=== PATIENT | female | born 1965 | race Caucasian/White ===

== ENCOUNTER → 2017-07-02 | Outpatient (CLI) | payer OTHER ==
[~2017-07-02] MED LIST: BIAXIN500 MG PO; CALCIUM 500500 M2 PO; HORMONE PATCH T; NORFLEX100 MG PO; OMEPRAZOLE40 MG PO; PERCOCET 325 MG1 TA7 PO; PRILOSEC20 MG PO; RANITIDINE HCL300 M2 PO; TRAMADOL50 MG PO; TYLENOL650 M1 PO; VICODIN ES 7501 TAB PO; ZEGERID 20 MG-11 CAP PO
== END | disposition home or self-care (01) ==
LOC: MAMMO 14:15
DX: Z12.31 Encounter for screening mammogram for malignant neoplasm of breast (principal)

== ENCOUNTER 2018-03-04 13:24 | Inpatient (IN) | payer OTHER ==
[~2018-03-04] VITALS: Ht 165.1 cm; Wt 67.7 kg
--- NOTE | ~2018-03-04 | EKG ---
[place], [place] ELECTROCARDIOGRAM REPORT NAME: ANSHU GARRISON UNIT #: [id number] ROOM: 425 DOCTOR: PAULINO DRAFT REPORT BIRTHDATE: [address] [facility] Test Date: 2018-03-04 Test Time: 13:51:35 Pat Name: ANSHU GARRISON Department: Room: Gender: F [employer]: : [id number] Requested By: NAZANIN PATEL Order Number: [id number] Reading MD: Jose Del Valle MD Measurements Intervals [place] Rate: 101 P: 80 [place]: 161 QRS: 39 QRSD: 81 T: 25 QT: 401 QTc: 520 Interpretive Statements Sinus tachycardia Minimal ST depression, inferior leads Prolonged QT interval Baseline wander in lead(s) II,V3 Abnormal EKG. Electronically Signed On 03-04-2018 16:23:21 PDT by Jose Del Valle MD CM:EKGRPT:ELECTROCARDIOGRAM REPORT [id number] NAZANIN BOB DRAFT REPORT NAZANIN PATEL M.D.
[2018-03-04 13:25] VITALS: BP 134/85
[2018-03-04 13:44] LABS: BASO # 0.1 10*3/uL (0.0-0.1); BASO % 1.2 % (0.0-1.0); EOS # 0.1 10*3/uL (0.0-0.4); EOS % 0.8 % (1.0-4.0); HEMATOCRIT 42.3 % (37.0-47.0); HEMOGLOBIN 14.3 g/dl (12.0-16.0); LYMPH # 2.5 10*3/uL (1.3-4.4); LYMPH % 32.5 % (27.0-41.0); MEAN CELL VOLUME 82.3 fl (81.0-99.0); MEAN CORPUSCULAR HGB 27.8 pg (27.0-31.0); MEAN CORPUSCULAR HGB CONC 33.8 g/dl (33.0-37.0); MEAN PLATELET VOLUME 9.5 fl (9.6-12.3); MONO # 0.5 10*3/uL (0.1-1.0); MONO % 6.6 % (3.0-9.0); NEUT # 4.4 10*3/uL (2.3-7.9); NEUT % 58.6 % (47.0-73.0); PLATELET COUNT AUTOMATED 368 10*3/uL (130-400); RED BLOOD COUNT 5.14 10*6/uL (4.10-5.10); RED CELL DISTRI WIDTH 12.6 % (0-14.5); WHITE BLOOD COUNT 7.6 10*3/uL (4.8-10.8)
[2018-03-04 13:52] LABS: ACT PARTIAL THROMBO TIME 22.2 SECONDS (20.8-31.5); INTERNATIONAL NORM RATIO 0.9 (2.0-3.5)
[2018-03-04 14:00] VITALS: BP 138/80
[2018-03-04 14:00] LABS: ALBUMIN 4.4 gm/dl (3.1-4.5); ALKALINE PHOSPHATASE 90 U/L (45-117); BUN 19 mg/dl (7-24); CHLORIDE 105 mmol/L (98-107); CREATININE 1.06 mg/dL (0.55-1.02); POTASSIUM 3.2 mmol/L (3.5-5.1); SGOT/AST 21 IU/L (3-35); SGPT/ALT 27 U/L (12-78); SODIUM 140 mmol/L (136-145); TOTAL PROTEIN 8.2 gm/dL (6.4-8.2)
[2018-03-04 14:01] LABS: TROPONIN I < 0.015 ng/ml (<0.045)
[2018-03-04 14:29] VITALS: BP 132/87
[2018-03-04 15:02] VITALS: BP 123/78
[2018-03-04 15:25] VITALS: BP 111/82
[2018-03-04] MEDS ORDERED: ESTRACE1 MG PO (15:42)
[2018-03-04] MEDS ORDERED: EC NAPROSYN500 MG PO (15:46)
[2018-03-04] MEDS ORDERED: CLARITHROMYCIN500 MG PO (15:51)
[2018-03-04] MEDS ORDERED: SYMB160 INH (15:52)
[2018-03-04] MEDS ORDERED: CLARITIN10 MG PO (15:52)
[2018-03-04] MEDS ORDERED: PROVENTIL HFA6.7 GM IH (15:57)
[2018-03-04 20:00] VITALS: BP 118/72; BP 129/82
[2018-03-05] VITALS: BP 116/68
[2018-03-05 06:59] LABS: HEMATOCRIT 41.7 % (37.0-47.0); HEMOGLOBIN 13.6 g/dl (12.0-16.0); MEAN CORPUSCULAR HGB CONC 32.6 g/dl (33.0-37.0); MEAN PLATELET VOLUME 9.7 fl (9.6-12.3); PLATELET COUNT AUTOMATED 331 10*3/uL (130-400); RED BLOOD COUNT 4.85 10*6/uL (4.10-5.10); RED CELL DISTRI WIDTH 12.9 % (0-14.5); WHITE BLOOD COUNT 10.2 10*3/uL (4.8-10.8)
[2018-03-05 07:24] LABS: ACT PARTIAL THROMBO TIME 21.8 SECONDS (20.8-31.5); BUN 19 mg/dl (7-24); CHLORIDE 106 mmol/L (98-107); CHOLESTEROL 247 mg/dL (<200); CREATININE 0.79 mg/dL (0.55-1.02); HDL CHOLESTEROL 79 mg/dl (40-60); INTERNATIONAL NORM RATIO 0.9 (2.0-3.5); LDL CHOLESTEROL 159 mg/dL (9-159); POTASSIUM 4.1 mmol/L (3.5-5.1); SODIUM 141 mmol/L (136-145); THYROID STIM HORMONE (HS) 0.726 uIU/ml (0.358-4.75); TRIGLYCERIDES 43 mg/dl (<150); VLDL CHOLESTEROL 9 mg/dL (6-40)
[2018-03-05 07:31] LABS: BASOPHILS 1 % (0-1); PLATELET SUFFICIENCY NORMAL (NORMAL); TOTAL CELLS COUNTED 100 #CELLS
[2018-03-05 08:00] VITALS: BP 136/77
[2018-03-05 09:26] LABS: VITAMIN D, 25-HYDROXY 19.2 ng/mL (30-100)
== END 2018-03-05 13:15 | disposition home or self-care (01) | DRG 313 ==
LOC: ED 13:24 → EDHOLD 14:37 → 4E 14:46
PROVIDERS: Emergency Medicine; Internal Medicine
DX: R07.9 Chest pain, unspecified (principal); N17.9 Acute kidney failure, unspecified; R65.10 Systemic inflammatory response syndrome (SIRS) of non-infectious origin without acute organ dysfunction; I45.81 Long QT syndrome; Z79.899 Other long term (current) drug therapy; E78.5 Hyperlipidemia, unspecified; J45.20 Mild intermittent asthma, uncomplicated; R00.0 Tachycardia, unspecified; T50.8X5A Adverse effect of diagnostic agents, initial encounter; R73.9 Hyperglycemia, unspecified; K21.9 Gastro-esophageal reflux disease without esophagitis; M19.90 Unspecified osteoarthritis, unspecified site; E87.6 Hypokalemia; Z90.710 Acquired absence of both cervix and uterus; Z87.891 Personal history of nicotine dependence; Z82.49 Family history of ischemic heart disease and other diseases of the circulatory system; Z88.0 Allergy status to penicillin; Z88.2 Allergy status to sulfonamides